=== PATIENT | female | born 2000 | race Caucasian/White ===

== ENCOUNTER 2018-05-30 08:46 | Emergency (ER) | payer OTHER ==
[2018-05-30] MEDS ORDERED: Sodium Chloride For Inhalation 0.9% 3 ML NEB ONE (09:28)
[2018-05-30] MEDS ORDERED: Ketorolac Tromethamine 30 MG/ML VIAL ONE (09:52)
--- NOTE | 2018-05-30 10:43 | RAD ---
TWO VIEWS OF THE CHEST: COMPARISON: None. HISTORY: Dry cough for 2 weeks and right-sided back pain. FINDINGS: Two views of the chest show normal sized cardiomediastinal silhouette. There is no evidence of consol idation, mass, or pleural effusion. The bones are unremarkable. IMPRESSION: No evidence of acute cardiopulmonary disease. POS: [facility]
== END 2018-05-30 10:30 | disposition home or self-care (01) ==
LOC: SCSER 08:46
DX: J06.9 Acute upper respiratory infection, unspecified (principal)
CPT/HCPCS: 71046; 93005; 96372; J1885; J7620